=== PATIENT | male | born 1965 | race Caucasian/White ===

== ENCOUNTER → 2017-06-05 08:19 | Outpatient (CLI) | payer OTHER | END | disposition home or self-care (01) | LOC: D.US 08:19 | DX: R10.11 Right upper quadrant pain (principal) ==

== ENCOUNTER → 2017-07-31 07:05 | Outpatient (CLI) | payer OTHER | END | disposition home or self-care (01) | LOC: D.NM 07:05 | DX: K76.0 Fatty (change of) liver, not elsewhere classified (principal); R10.11 Right upper quadrant pain ==